=== PATIENT | female | born 1995 ===

== ENCOUNTER 2020-11-21 10:20 | Observation (INO) | payer BC ==
[~2020-11-21] VITALS: Ht 152.4 cm; Wt 75.7 kg
[2020-11-21] MEDS ORDERED: PREN-96 PO (12:38)
== END 2020-11-21 12:50 | disposition home or self-care (01) ==
LOC: LDRP 10:20
PROVIDERS: ADMIT Obstetrics & Gynecology; ATTEND Obstetrics & Gynecology
DX: O21.2 Late vomiting of pregnancy (principal); Z20.822 Contact with and (suspected) exposure to COVID-19; O26.893 Other specified pregnancy related conditions, third trimester; R19.7 Diarrhea, unspecified; O62.9 Abnormality of forces of labor, unspecified; Z3A.37 37 weeks gestation of pregnancy
CPT/HCPCS: 36415; 59025; 81002; 87426; 94760; G0378; G0379

== ENCOUNTER 2020-12-04 05:40 | Inpatient (IN) | payer BC ==
[~2020-12-04] VITALS: Ht 165.1 cm; Wt 75.7 kg
[2020-12-04] VITALS (17 sets, daily range): BP systolic 85–103; BP diastolic 50–72
[~2020-12-04 05:40] MED LIST: PREN-96 PO
[2020-12-04] MEDS ORDERED: ceFAZolin 1GM/50ML 50 ML IV ONE (06:00)
[2020-12-04] MEDS ORDERED: LACTATED RINGER'S 1,000 ML IV ONE (06:00)
[2020-12-04] MEDS ORDERED: TETRACAINE 1% INJ 2 ML VIAL IJ ONE (07:00)
[2020-12-04] MEDS ORDERED: MORPHINE SULFATE INJECTION 2 MG/ML SYRG IV ONE (07:09)
[2020-12-04] MEDS ORDERED: EPINEPHrine HCL 1 MG/1 ML AMP IM ONE (07:09)
[2020-12-04] MEDS ORDERED: BUPIVACAINE/DEXTROSE MPF 0.75% 2 ML AMP IT ONE (07:09)
[2020-12-04] MEDS ORDERED: MIDAZOLAM HCL 2MG/2ML 2ml VIAL (1mg/ml) IV ONE (07:09)
[2020-12-04] MEDS ORDERED: SODIUM CHLOR 0.9% PF (SALINE LOCK) 10ML VIAL/SYR IV ONE (07:09)
[2020-12-04] MEDS ORDERED: oxyTOCIN 10 UNIT/ML 10ML VIAL IV ONE (07:09)
[2020-12-04] MEDS ORDERED: fentaNYL CITRATE 100 MCG/2 ML VL IV ONE (07:09)
[2020-12-04] MEDS ORDERED: ONDANSETRON HCL 4 MG/2 ML VIAL IV ONE (07:09)
[2020-12-04] MEDS: LACTATED RINGER'S 1,000 ML IV SCH ×3 (07:29→22:34)
[2020-12-04 07:31] LABS: Basophils # (auto) 0 10 ^3/uL (0-0.2); Eosinophils # (auto) 0 10 ^3/uL (0-0.8); Eosinophils % (auto) 0.4 % (0.0-7.0); Hemoglobin 8.8 g/dL (12.2-16.2); Lymphocytes # (auto) 2.1 10 ^3/uL (0.4-5.4); Monocytes # (auto) 0.9 10 ^3/uL (0-1.3); Neutrophils # (auto) 7.8 10 ^3/uL (1.6-8.6)
[2020-12-04 07:33] LABS: Basophils % (auto) 0.2 % (0.0-2.0); Hematocrit 27.7 % (36.0-46.0); Lymphocytes % (auto) 19.1 % (10.0-50.0); Mean Corpuscular Hemoglobin 22.2 pg (28.0-32.0); Mean Corpuscular Hgb Conc. 31.8 g/dL (32.0-36.0); Mean Corpuscular Volume 69.7 fL (80.0-100.0); Monocytes % (auto) 7.9 % (0.0-12.0); Neutrophils % (auto) 72.4 % (37.0-80.0); Nucleated Red Blood Cells % 0.1 %; Red Blood Cells 3.98 10^6/uL (4.0-5.20); Red Cell Distribution Width 18.4 % (11.8-14.3); White Blood Cell 10.8 10^3/uL (4.4-10.8)
[2020-12-04 07:38] LABS: INR 1.04 (0.9-1.15); Partial Thromboplastin Time 26.8 sec (23.6-33.0)
[2020-12-04 07:40] LABS: Urine Bacteria NONE SEEN /hpf (None Seen); Urine Blood Negative /uL (Negative); Urine Mucus FEW (None Seen); Urine Specific Gravity 1.021 (1.001-1.035); Urine WBC 1 /hpf (0 - 5)
[2020-12-04 07:41] LABS: Albumin 2.2 g/dL (3.4-5.0); Calcium 8.3 mg/dL (8.5-10.1); Potassium 3.8 mmol/L (3.5-5.1)
[2020-12-04] MEDS ORDERED: MORPHINE SULFATE INJECTION 2 MG/ML SYRG IV PRN (07:45)
[2020-12-04] MEDS ORDERED: HYDROmorphone HCL 2 MG/ML VL IV PRN (07:45)
[2020-12-04] MEDS ORDERED: METOCLOPRAMIDE HCL 5MG/ml INJ 2ml VIAL IV PRN (07:45)
[2020-12-04 07:46] LABS: BUN/Creatinine Ratio 10.6; Bilirubin, Total 0.5 mg/dL (0.2-1.0); Total Protein 5.9 g/dL (6.4-8.2)
[2020-12-04 08:10] LABS: Alcohol, Urine < 3.0 mg/dL (0-10); Amphetamine Screen, Urine NEGATIVE (NEGATIVE); Barbiturate Scree,Urine NEGATIVE (NEGATIVE); Benzodiazephine Screen, Urine NEGATIVE (NEGATIVE); Cannabinoid Screen, Urine NEGATIVE (NEGATIVE); Cocaine Screen, Urine NEGATIVE (NEGATIVE); Opiate Scree,Urine NEGATIVE (NEGATIVE); Phencyclidine Screen, Urine NEGATIVE (NEGATIVE)
[2020-12-04] MEDS ORDERED: LACT. RINGERS/OXYTOCIN 20UNITS 1,000 ML IV ONE (08:30)
[2020-12-04] MEDS ORDERED: GUM (CHEWING) 1 GUM CHEW CHEW ONE (08:30)
[2020-12-04] MEDS ORDERED: ONDANSETRON HCL 4 MG/2 ML VIAL IV PRN ×2 (08:30→09:30)
[2020-12-04] MEDS ORDERED: NALOXONE HCL 0.4 MG/ML VIAL IV PRN (09:30)
[2020-12-04] MEDS ORDERED: ACETAMINOPHEN IV 1000 MG/100ML (10MG/ML) IV PRN ×2 (12:00→12:30)
[2020-12-04] MEDS: ceFAZolin 1GM/50ML 50 ML IV SCH ×2 (16:44→23:47)
[2020-12-04 22:29] LABS: Basophils # (auto) 0 10 ^3/uL (0-0.2); Eosinophils # (auto) 0 10 ^3/uL (0-0.8); Eosinophils % (auto) 0.2 % (0.0-7.0); Neutrophils # (auto) 9.5 10 ^3/uL (1.6-8.6)
[2020-12-04 22:31] LABS: Basophils % (auto) 0.2 % (0.0-2.0); Hematocrit 27.2 % (36.0-46.0); Hemoglobin 8.3 g/dL (12.2-16.2); Lymphocytes # (auto) 1.6 10 ^3/uL (0.4-5.4); Lymphocytes % (auto) 13.3 % (10.0-50.0); Mean Corpuscular Hemoglobin 21.1 pg (28.0-32.0); Mean Corpuscular Hgb Conc. 30.5 g/dL (32.0-36.0); Monocytes % (auto) 8.4 % (0.0-12.0); Neutrophils % (auto) 77.9 % (37.0-80.0); Nucleated Red Blood Cells % 0.1 %; Red Blood Cells 3.94 10^6/uL (4.0-5.20); Red Cell Distribution Width 18.5 % (11.8-14.3); White Blood Cell 12.1 10^3/uL (4.4-10.8)
[2020-12-04] MEDS: MORPHINE SULFATE INJECTION 2 MG/ML SYRG IV PRN (22:33)
[2020-12-05] VITALS (11 sets, daily range): BP systolic 94–118; BP diastolic 56–79
[2020-12-05 06:57] LABS: Basophils # (auto) 0.1 10 ^3/uL (0-0.2); Basophils % (auto) 0.5 % (0.0-2.0); Eosinophils # (auto) 0 10 ^3/uL (0-0.8); Eosinophils % (auto) 0.3 % (0.0-7.0); Hematocrit 27.6 % (36.0-46.0); Hemoglobin 8.5 g/dL (12.2-16.2); Lymphocytes # (auto) 1.6 10 ^3/uL (0.4-5.4); Lymphocytes % (auto) 14.7 % (10.0-50.0); Mean Corpuscular Hemoglobin 21.4 pg (28.0-32.0); Mean Corpuscular Hgb Conc. 30.9 g/dL (32.0-36.0); Mean Corpuscular Volume 69.2 fL (80.0-100.0); Monocytes # (auto) 0.9 10 ^3/uL (0-1.3); Monocytes % (auto) 8.2 % (0.0-12.0); Neutrophils # (auto) 8.4 10 ^3/uL (1.6-8.6); Neutrophils % (auto) 76.3 % (37.0-80.0); Nucleated Red Blood Cells % 0.1 %; Red Blood Cells 3.99 10^6/uL (4.0-5.20); Red Cell Distribution Width 18.7 % (11.8-14.3)
[2020-12-05] MEDS: MORPHINE SULFATE INJECTION 2 MG/ML SYRG IV PRN (07:24)
[2020-12-05] MEDS: LACTATED RINGER'S 1,000 ML IV SCH (07:25)
[2020-12-05] MEDS: ceFAZolin 1GM/50ML 50 ML IV SCH (07:35)
[2020-12-05 08:06] LABS: RPR Non Reactive (Non Reactive)
[2020-12-05] MEDS ORDERED: BISACODYL 10 MG RECT SUPP PR PRN (09:00)
[2020-12-05] MEDS ORDERED: LACTATED RINGER'S 1,000 ML IV SCH (09:00)
[2020-12-05] MEDS ORDERED: HYDROcodone-ACET 5/325MG TAB PO PRN (09:00)
[2020-12-05] MEDS: FERROUS SULFATE 325mg EC TAB PO SCH ×3 (09:49→21:40)
[2020-12-05] MEDS: DOCUSATE SOD 100 MG CAP PO SCH ×2 (09:49→21:40)
[2020-12-05] MEDS: DOCUSATE CALCIUM 240 MG CAP PO SCH (09:49)
[2020-12-05] MEDS: HYDROcodone-ACET 5/325MG TAB PO PRN ×2 (12:08→20:16)
[2020-12-05] MEDS: SIMETHICONE 80 MG CHEWABLE TABLET PO SCH ×3 (12:28→21:40)
[2020-12-05] MEDS ORDERED: HYDR-4902 PO (12:38)
[2020-12-05] MEDS ORDERED: DOCU-94 PO (12:38)
[2020-12-05] MEDS ORDERED: IBUP800T27 PO (12:38)
[2020-12-05] MEDS: IBUPROFEN 800 MG TAB PO PRN (14:18)
[2020-12-06 03:00] VITALS: BP 115/82
[2020-12-06] MEDS: HYDROcodone-ACET 5/325MG TAB PO PRN ×5 (03:14→22:09)
[2020-12-06] MEDS: SIMETHICONE 80 MG CHEWABLE TABLET PO SCH ×4 (05:39→22:08)
[2020-12-06] MEDS: FERROUS SULFATE 325mg EC TAB PO SCH ×3 (05:39→22:08)
[2020-12-06 06:58] VITALS: BP 110/75
[2020-12-06] MEDS: DOCUSATE CALCIUM 240 MG CAP PO SCH (09:58)
[2020-12-06] MEDS: DOCUSATE SOD 100 MG CAP PO SCH ×2 (09:58→22:08)
[2020-12-06 10:51] VITALS: BP 109/71
[2020-12-06 15:03] VITALS: BP 103/75
[2020-12-06 19:30] VITALS: BP 117/70
[2020-12-06 23:00] VITALS: BP 100/69
[2020-12-07 03:00] VITALS: BP 92/63
[2020-12-07] MEDS: IBUPROFEN 800 MG TAB PO PRN (03:24)
[2020-12-07 03:56] VITALS: BP 92/63
[2020-12-07] MEDS: FERROUS SULFATE 325mg EC TAB PO SCH (05:37)
[2020-12-07] MEDS: SIMETHICONE 80 MG CHEWABLE TABLET PO SCH (05:37)
[2020-12-07] MEDS: HYDROcodone-ACET 5/325MG TAB PO PRN ×2 (05:38→10:36)
[2020-12-07 07:00] VITALS: BP 109/81
[2020-12-07] MEDS ORDERED: LIDOCAINE HCL 5 % TOP OINT 35 GM TOP ONE (07:15)
[2020-12-07] MEDS: DOCUSATE CALCIUM 240 MG CAP PO SCH (10:35)
[2020-12-07] MEDS: DOCUSATE SOD 100 MG CAP PO SCH (10:35)
[2020-12-07 11:30] VITALS: BP 110/76
== END 2020-12-07 11:35 | disposition home or self-care (01) | DRG 785 ==
LOC: LDRP 05:40
PROVIDERS: ADMIT Obstetrics & Gynecology; ATTEND Obstetrics & Gynecology
PROC: 0UL70CZ Occlusion of Bilateral Fallopian Tubes with Extraluminal Device, Open Approach (ICD-10-PCS; 2020-12-04)
PROC: 10D00Z1 Extraction of Products of Conception, Low, Open Approach (ICD-10-PCS; principal; 2020-12-04 08:12)
DX: O34.211 Maternal care for low transverse scar from previous cesarean delivery (principal); Z3A.39 39 weeks gestation of pregnancy; Z37.0 Single live birth; Z30.2 Encounter for sterilization
CPT/HCPCS: 36415; 80053; 80307; 81001; 81002; 85025; 85610; 85730; 86592; 86850; 86900; 86901; 86920; 94760; 94762; 96360; 96361; 96365; 96366; G0378; J0131; J0171; J0690; J2250; J2405; J2590